=== PATIENT | male | born 1990 | race Caucasian/White ===

== ENCOUNTER 2019-01-08 16:18 | Emergency (ER) | payer OTHER, SELFPAY ==
[2019-01-08 16:26] VITALS: BP 147/82; PULSE 73; RESP 14; TEMP 37.2; O2SAT 95; BMI 18.4
--- NOTE | 2019-01-08 16:26 | ED_ITS ---
HPI - Wound/Laceration <LEN Pérez - Last Filed: 01/08/19 19:26> General Chief Complaint: Wound/Laceration Stated Complaint: laceration to right hand at work Time Seen by Provider: 01/08/19 16:26 Source: patient Mode of arrival: ambulatory Limitations: no limitations History of Present Illness HPI narrative: 28-year-old healthy male presents emergency department today complaining of a laceration on the top of his right hand. He states he cut his hand on a sheet of metal a few hours ago. He is unsure of when his last tetanus was. Denies any fevers, chills, really discharged to the wound, and weakness, finger weakness, decreased range of motion, chest pain, shortness of breath, or nausea, vomiting, diarrhea. Related Data Previous Rx's Medication Instructions Recorded mupirocin 1 applictn TOP TID #30 gram 01/08/19 Allergies Allergy/AdvReac Type Severity Reaction Status Date / Time sulfamethoxazole Allergy Verified 01/08/19 16:26 [From ] trimethoprim [From ] Allergy Verified 01/08/19 16:26 Review of Systems <LEN Pérez - Last Filed: 01/08/19 19:26> Review of Systems Narrative: REVIEW OF SYSTEMS: GENERAL: Denies fever or chills. HENT: Denies head trauma. EYE: Denies double vision or vision loss. CARDIOVASCULAR: Denies syncope. MUSCULOSKELETAL: Denies weakness, or deformities. INTEGUMENTARY: Complains of right hand laceration, see HPI. NEURO: Denies numbness or tingling. PFSH <LEN Pérez - Last Filed: 01/08/19 19:26> Medical History No significant medical problems (Acute) Social History Smoking Status: Current every day smoker Social History Smoking Status: Current every day smoker Exam <LEN Pérez - Last Filed: 01/08/19 19:26> Initial Vital Signs Initial Vital Signs: Vital Signs Temperature 99.0 F 01/08/19 16:26 Pulse Rate 73 01/08/19 16:26 Respiratory Rate 14 01/08/19 16:26 Blood Pressure 147/82 H 01/08/19 16:26 Pulse Oximetry 95 01/08/19 16:26 PHYSICAL EXAMINATION: GENERAL: Well groomed, alert, and cooperative. Answers questions promptly and ap propriately. Vital signs noted. HENT: Normocephalic, atraumatic. RESPIRATORY: Normal respiratory rate, trachea midline, airway patent. No stridor, nasal flaring or accessory muscle use. MUSCULOSKELETAL: Normal gait and coordination. Equal tone and mass bilaterally. EXTREMITIES: CMS intact. Moves all extremities. SKIN: Warm, dry, soft, appropriate color for ethnicity. 1.5cm laceration to po sterior aspect of right hand. Wound bed pink, small amount of subcutaneous tissue visualized. Bleeding controlled. No surrounding erythema. Wound was washed extensively before gluing. Patient tolerated procedure well. A small 3cm annular lesion noted to left side of leg, lesion contained 1 pustule and 2 papules on erythemic base- no crusts. NEURO: Alert and Oriented X 3. Good coordination. PSYCH: Appropriate affect and mood. <Heather Escamilla MD - Last Filed: 01/08/19 19:34> Initial Vital Signs Initial Vital Signs: Vital Signs Temperature 99.0 F 01/08/19 16:26 Pulse Rate 73 01/08/19 16:26 Respiratory Rate 14 01/08/19 16:26 Blood Pressure 147/82 H 01/08/19 16:26 Pulse Oximetry 95 01/08/19 16:26 Procedures <LEN Pérez - Last Filed: 01/08/19 19:26> Laceration Repair Laceration 1: Site: hand Side (If applicable): right Size (cm): 1.5 Description: linear Depth: simple, single layer Pre-repair: irrigated extensively Skin layer closed with: dermabond Course <LEN Pérez - Last Filed: 01/08/19 19:26> Course Course Narrative: Simple laceration repair with glue, patient tolerated procedure well. Orders Ordered: Discontinued Medications Diphtheria/Tetanus/Acell Pertussis (Adacel) 0.5 ml IM .ONCE ONE Stop: 01/08/19 16:27 Last Admin: 01/08/19 16:30 Dose: 0.5 ml Documented by: SCANAPO Vital Signs Vital signs: Vital Signs - 8 hr 01/08/19 16:26 Temperature 99.0 F Pulse Rate 73 Respiratory Rate 14 Blood Pressure 147/82 H Pulse Oximetry 95 <Heather Escamilla MD - Last Filed: 01/08/19 19:34> Orders Ordered: Discontinued Medications Diphtheria/Tetanus/Acell Pertussis (Adacel) 0.5 ml IM .ONCE ONE Stop: 01/08/19 16:27 Last Admin: 01/08/19 16:30 Dose: 0.5 ml Documented by: SCANAPO Vital Signs Vital signs: Vital Signs - 8 hr 01/08/19 16:26 Temperature 99.0 F Pulse Rate 73 Respiratory Rate 14 Blood Pressure 147/82 H Pulse Oximetry 95 MDM - Wound/Laceration <LEN Pérez - Last Filed: 01/08/19 19:26> Medical Records Attestation: I reviewed the patient's medical records. Lab Data Attestation: I reviewed the patient's lab results. MDM Narrative Medical decision making narrative: Simple laceration repair. Differential for lesion only conclude and dermatitis and insect bite. Patient was given mupirocin for this area as there was 1 pustule seen and he reports a history of MRSA. Discharge Plan Departure Patient Disposition: Home Clinical Impression: Laceration Leg wound, left Qualifiers: Encounter type: initial encounter Qualified Code(s): S81.802A - Unspecified open wound, left lower leg, initial encounter Discharge Date/Time: 01/08/19 16:55 Instructions: DI for Laceration Repair Activity Restrictions/Additional Instructions: Thank you for entrusting me with your care today. As discussed, we have repaired the laceration with a glue. Do not put Neosporin or bacitracin on this as it will dissolve the glue. Try to keep your hand dry, do not immerse your hand in to contaminated water such as a hot tub or while washing dishes. I prescribed you an appointment for the small wound on your leg. Monitor for signs of infection such as increased redness, purulent drainage, increased warmth, increased pain, fevers, or chills-this occurs please return to the emergency department or walk-in clinic. Prescriptions: New mupirocin 2 % ointment 1 applictn TOP TID Qty: 30 RF: 0
[2019-01-08] MEDS: TET,DIPH,PERTUSS(ACELL),VAC/PF 0.5 ML SYRINGE IM (16:30)
== END 2019-01-08 16:55 | disposition home or self-care (01) ==
PROVIDERS: Emergency Provider Nurse Practitioner
DX: S61.411A Laceration without foreign body of right hand, initial encounter (principal); W26.8XXA Contact with other sharp object(s), not elsewhere classified, initial encounter; Y99.0 Civilian activity done for income or pay
CPT/HCPCS: 90471; 99283; 90715